=== PATIENT | female | born 1985 | race Two or more races ===

== ENCOUNTER 2019-08-23 08:10 | Outpatient (CLI) | payer OTHER | END 2019-08-23 08:48 | disposition home or self-care (01) | LOC: SONOGRAMA 08:10 | PROVIDERS: ATTEND Pathology Anatomic Pathology | DX: R59.0 Localized enlarged lymph nodes (principal) ==

== ENCOUNTER 2022-09-17 09:38 | Outpatient (CLI) | payer OTHER | END 2022-09-17 09:44 | disposition home or self-care (01) | LOC: SONOGRAMA 09:38 | PROVIDERS: ATTEND General Practice | DX: N63.32 Unspecified lump in axillary tail of the left breast (principal) ==